=== PATIENT | male | born 1945 | race Caucasian/White ===

== ENCOUNTER → 2021-04-11 | Outpatient (CLI) | payer MEDICARE, OTHER ==
[~2021-04-11] MED LIST: ACTOS15 MG PO; ALBUTEROL2.5 MG/3 M INH; ALPRAZOLAM0.5 MG PO; FLEXERIL 10 MG10 MG PO; GLUCOPHAGE 500500 MG PO; HYDROCHLOROTHIA25 MG PO; LEXAPRO10 MG PO; LODINE CAP 300300 MG PO; LOPID TAB 600600 MG PO; NEURONTIN800 MG PO; NEXIUM40 MG PO; NORVASC 5 MG TAB5 MG PO; OXYCODONE HCL10 MG PO; PEPCID20 MG PO; PERCOCET 5-3251 EACH PO; PRAVACHOL40 MG PO; VITAMIN B-121000 MCG PO; ZANAFLEX4 M1 PO; ZESTRIL 40 MG T40 MG PO; ZOFRAN ODT 4 MG4 MG PO
== END ==
LOC: US 12:19
DX: N28.1 Cyst of kidney, acquired (principal)

== ENCOUNTER → 2021-12-21 | Outpatient (CLI) | payer MEDICARE, OTHER | LOC: KOH-I 09:03 | DX: R10.32 Left lower quadrant pain (principal) | CPT/HCPCS: 71101 ==

== ENCOUNTER → 2022-01-18 | Outpatient (CLI) | payer MEDICARE, OTHER | LOC: KOH-I 09:11 | DX: R29.6 Repeated falls (principal) | CPT/HCPCS: 70450 ==

== ENCOUNTER → 2022-05-22 | Outpatient (CLI) | payer MEDICARE, OTHER ==
[~2022-05-22] MED LIST changes: +CELECOXIB200 MG PO; +CHLORTHALIDONE25 MG PO; +LEVOFLOXACIN500 MG PO; +MEDROL DOSEPAK 24 MG PO
== END ==
LOC: EXRD 08:56
DX: N28.1 Cyst of kidney, acquired (principal)
CPT/HCPCS: 76775